=== PATIENT | male | born 1990 | race Caucasian/White ===

== ENCOUNTER 2025-01-20 06:51 | Day surgery (SDC) | payer BC ==
[2025-01-20] MEDS ORDERED: Propofol 200 MG/20 ML SDV IV ONE (06:52)
[2025-01-20] MEDS ORDERED: Sodium Chloride 0.9% 10 ML Syringe FLUSH PRN (07:00)
[2025-01-20] MEDS: Lactated Ringers 1,000 ML IV SCH (07:34)
== END 2025-01-20 09:34 | disposition home or self-care (01) ==
LOC: FB.SDS 06:51
PROVIDERS: ATTEND Surgery
DX: K21.00 Gastro-esophageal reflux disease with esophagitis, without bleeding (principal); K29.50 Unspecified chronic gastritis without bleeding; R07.9 Chest pain, unspecified; Z88.0 Allergy status to penicillin; Z79.899 Other long term (current) drug therapy
CPT/HCPCS: 00731; 43239; 88305; 88342; A9270; J2003; J2704; J7120